=== PATIENT | male | born 1965 | race Caucasian/White ===

== ENCOUNTER 2020-10-09 14:18 | Inpatient (IN) | payer MEDICARE, MEDICAID, SELFPAY ==
--- NOTE | ~2020-10-09 | CT_ITS ---
EXAMINATION: CT brain wo con INDICATION: Increasing weakness, altered mental status COMPARISON: None TECHNIQUE: Standard unenhanced head CT. The dose-length product (DLP) was 681.00 mGy-cm. The mA was a djusted according to patient size. Iterative reconstruction technique was employed. FINDINGS: There is no acute intraparenchymal hemorrhage. No evidence of mass lesion. No evidence of a cute infarction. There are areas of hypoattenuation in the periventricular white matter adjacent to t he left lateral ventricles as well as in the right frontal lobe. There is mild periventricular and gutierrez bcortical hypodensity probably related to small vessel ischemic disease. There is mild prominence of the sulci and ventricles related to cerebral atrophy. Intracranial calcified cerebral atherosclerosis is noted. There are no extra-axial collections. There is no mass effect or midline shift. The orbits and soft tissues are unremarkable. The visualized sinuses and mastoid air cells are well aerated. IMPRESSION: 1. No acute intracranial abnormality. 2. Areas of low attenuation in the periventricular white matter and right frontal lobe which could re flect prior infarction or possibly demyelinating disorder such as multiple sclerosis. Reviewed, dictated and finalized at location B. IMPRESSION: 1. No acute intracranial abnormality. 2. Areas of low attenuation in the periventricular white matter and right front al lobe which could reflect prior infarction or possibly demyelinating disorder such as multiple sclerosis.
--- NOTE | ~2020-10-09 | XR_ITS ---
EXAMINATION: XR chest 1V portable INDICATION: Weakness and shortness of breath TECHNIQUE: Portable AP chest at 1605 hours COMPARISON: None available FINDINGS: There is a small left pleural effusion. Minimal airspace opacities are present in the lung bases, left greater than right. There is no pneumothorax. The cardiomediastinal silhouette is normal. IMPRESSION: 1. Bibasilar airspace opacities, consistent with atelectasis versus pneumonia. 2. Small left pleural effusion. Reviewed, dictated and finalized at location B.
[2020-10-09 14:40] VITALS: BP 124/78; PULSE 95; RESP 20; TEMP 38; O2SAT 99
--- NOTE | 2020-10-09 15:31 | ECG_ITS ---
Measurements Intervals [place] Rate: 100 P: 56 CA: 156 QRS: -8 QRSD: 84 T: 34 QT: 330 QTc: 427 Interpretive Statements SINUS TACHYCARDIA VENTRICULAR PREMATURE COMPLEXES DELAYED PRECORDIAL R/S TRANSITION NONSPECIFIC T-WAVE ABNORMALITY- DIFFUSE LEADS BASELINE ARTIFACT- I, II, III, AVR, AVL, AVF, V1, V6 BORDERLINE ECG Electronically Signed On 10-09-2020 16:00:51 CDT by Migue Gardner D.O.
[2020-10-09 16:06] LABS: Basophils Absolute Auto 0.04 K/mm3 (0.00-0.10); Basophils Percent Auto 0.2 % (0.0-1.0); Hematocrit 46.5 % (40.0-54.0); Hemoglobin 15.5 g/dL (14.0-18.0); Immature Granulocyte Absolute 0.06 K/mm3 (0.00-0.00); Immature Granulocyte Percent A 0.3 % (0.0-0.0); Lymphocytes Absolute Auto 0.85 K/mm3 (1.10-4.50); Lymphocytes Percent Auto 4.7 % (18.0-42.0); Mean Corpuscular HGB Conc 33.3 g/dL (32.0-36.0); Mean Corpuscular Hemoglobin 30.8 pg (27.0-31.0); Mean Corpuscular Volume 92.3 fL (78.0-102.0); Mean Platelet Volume 9.1 fl (8.7-11.0); Monocytes Absolute Auto 1.59 K/mm3 (0.10-0.90); Monocytes Percent Auto 8.8 % (2.0-11.0); Neutrophils Absolute Auto 15.5 K/mm3 (1.7-7.2); Platelet Count Result 228 K/mm3 (150-420); Red Blood Count 5.04 M/mm3 (4.70-6.10); Red Cell Distribution Width 12.2 % (11.6-14.4); White Blood Count 18.1 K/mm3 (4.8-10.8)
[2020-10-09] MEDS: SODIUM CHLORIDE 0.9% IV 1,000 ML 150 ML IV CONT (16:16)
[2020-10-09 16:25] LABS: Alanine Aminotransferase 51 U/L (16-63); Albumin Level 4.2 g/dL (3.4-5.0); Alkaline Phosphatase 79 U/L (46-116); Anion Gap 9 mmol/L (8-16); Aspartate Amino Transferase 20 U/L (15-37); Bilirubin,Total 1.1 mg/dL (0.00-1.00); Blood Urea Nitrogen 11 mg/dL (7-18); Calcium 9.1 mg/dL (8.5-10.1); Carbon Dioxide 28 mmol/L (21-32); Chloride 103 mmol/L (98-108); Estimated CRCL calculation 82 ml/min; Estimated Glomerular Filt Rate > 60; Glucose 106 mg/dL (70-99); Lactic Acid Reflex 1.3 mmol/L (0.4-2.0); Osmolality Calculated 289 mOsm/kg (285-295); Potassium 4.1 mmol/L (3.5-5.1); Sodium 140 mmol/L (136-145); Total Protein 7.6 g/dL (6.4-8.2); Troponin I 4.3 ng/L (0.00-60.4)
--- NOTE | 2020-10-09 17:28 | PC.NURSE ---
Call placed to pts. neurologist Dr Mensah, oncall is Dr Evans per neurology staff. Awaiting call back from Dr Evans.
[2020-10-09 17:57] LABS: Appearance Urine Clear (Clear); Bilirubin Urine Negative (Negative); Color Urine Light Yellow (Yellow); Glucose Urine UA Negative (Negative); Ketones Urine 1+ (Negative); Leukocyte Esterase Ur 1+ (Negative); Nitrate Urine Positive (Negative); Protein Urine Negative (Negative); Urobilinogen Urine 0.2 mg/dL (0.2-1.0); pH Urine 6.5 (5.0-8.0)
[2020-10-09 18:05] LABS: Add Urine Microscopic? YES; Amorphous Sediment Urine Few; Bacteria Urine 4+ /hpf; Blood Urine Trace-lysed (Negative); RBC Urine 0-2 /hpf (0-2); Squamous Epithelial Cell Urine None seen /hpf (Few)
--- NOTE | 2020-10-09 18:27 | ED.WEAKNESS ---
HPI - Weakness General Chief complaint: Weakness Stated complaint: Ambulance Time Seen by Provider: 10/09/20 14:42 Source: patient and RN notes reviewed Mode of arrival: wheelchair Limitations: no limitations History of Present Illness MD Complaint: generalized weakness and lack of energy Onset (ago): hour(s) (4) Duration: constant Location: generalized Severity: mild Severity scale (1-10): 7 Quality: dull Relieving factors: none Exacerbating factors: none Context: other (pt has MS, but has done well living on his own for many years.) Associated symptoms: loss of appetite Related Data Home Medications Medication Instructions Recorded Confirmed atorvastatin 20 mg PO DAILY 10/09/20 10/09/20 glatiramer [Glatopa] See Rx Instructions .ROUTE .COMPLEX 10/09/20 10/09/20 Allergies Allergy/AdvReac Type Severity Reaction Status Date / Time No Known Allergies Allergy Verified 10/09/20 15:29 Review of Systems Review of Systems: All systems reviewed & are unremarkable except as noted in HPI and below Constitutional: Constitutional: Reports as per HPI and Reports no additional constitutional complaints Eyes: Eyes: Reports as per HPI and Reports no additional eye complaints ENT: Reports system reviewed and no additional complaints, except as documented and Reports as per HPI Cardiovascular: Cardiovascular: Reports as per HPI and Reports no additional cardiovascular complaints Respiratory: Respiratory: Reports as per HPI and Reports no additional respiratory complaints Gastrointestinal: Gastrointestinal: Reports as per HPI and Reports no additional gastrointestinal complaints Genitourinary: Genitourinary: Reports no additional male genitourinary complaints and Reports as per HPI Musculoskeletal: Musculoskeletal: Reports no additional musculoskeletal complaints and Reports as per HPI Integumentary/Breasts: Skin/Breast: Reports system reviewed and no additional complaints, except as docu and Reports as per HPI Neurologic: Reports system reviewed and no additional complaints, except as documented and Reports as per HPI Psychiatric: Psychiatric: Reports no additional psychiatric complaints and Reports as per HPI Endocrine: Endocrine: Reports no additional endocrine complaints and Reports as per HPI Hematologic/Lymphatic: Hematologic/Lymphatic: Reports no additional hematologic/lymphatic complaints and Reports as per HPI Allergic/Immunologic: Allergic/Immunologic: Reports no additional allergic/immunologic complaints and Reports as per HPI PMFSH Past Medical History Medical History Multiple sclerosis exacerbation Social History Social History Smoking status: Former smoker Tobacco type: cigarettes Alcohol intake: never Substance use: never Gender identity (if verbalized by the patient): Male Spiritual care concerns: No Exam Const: General: no acute distress, alert and ill appearing Orientation/consciousness: patient oriented x3 HENMT: Head: normal to inspection Ears: external ears normal and TM's normal bilaterally General nose exam: Normal external nose present and Normal nares present Mouth: Yes lip normal and Yes moist mucous membranes Teeth and gingiva: dentition normal Eyes: Conjunctivae: conjunctivae normal Pupils: Equal, round and reactive pupils present EOM: EOMs intact bilaterally Neck: Neck: normal visual inspection and no lymphadenopathy Chest: Chest palpation & inspection: normal inspection of the chest Resp: Effort & Inspection: normal respiratory effort Auscultation: crackles and rhonchi Cardio: Rate: regular rate Rhythm: regular rhythm GI: GI Palp: Yes Soft to palpation Percussion: Yes normal to percussion Auscultation: normal bowel sounds : General: Yes CVA tenderness Male General Exam: Yes normal external exam Back/Spine/Pelvis: Back: no CVA tendernes
[2020-10-09] MEDS: AZITHROMYCIN 250 MG TABLET 500 MG PO (18:54)
[2020-10-09 19:00] VITALS: BP 112/68; PULSE 100; RESP 20; TEMP 37.5; O2SAT 97
[2020-10-09 19:06] VITALS: PULSE 91; RESP 18; O2SAT 95
[2020-10-09 20:00] VITALS: BP 127/72; PULSE 100; PULSE 91; RESP 18; TEMP 37.5; O2SAT 95
[2020-10-09 20:21] VITALS: BMI 25.6
[2020-10-09] MEDS: ENOXAPARIN 30 MG/0.3 ML SYRINGE SUB-Q (20:31)
[2020-10-09] MEDS: methylPREDNISolone SOD SUCC 125 MG VIAL IV PUSH ×2 (20:31→23:33)
[2020-10-09] MEDS: SODIUM CHLORIDE 0.9% IV 1,000 ML 100 ML IV CONT (20:49)
--- NOTE | 2020-10-09 21:10 | ADMGEN ---
This patient, Aditya Alves, was admitted to 2nd Floor Room 205-2. Patient oriented to hospital policies and general routines including ID bracelet, bed and alarms, visiting hours, pain management, procedures, bathroom and other care routines, personal items, smoking policy, room service/diet, and visiting hours. Information on how to activate the Rapid Response Team has been discussed. Patient are encouraged to report perceived risks to care and to ask questions if they do not understand what they are told or what they should do. Patient A/O x4. Denies any c/o pain at this time. Arrived to floor from ER at 1950. Patient has history of MS and has motorized wheelchair for mobility. Patient states has some feeling to BLE. IV present to left hand, 22g. Fluids running at this time, NS at 150/hr. Tremors noted to bilateral hands and arms. Slight edema present to bilateral ankles, non-pitting. Telemetry applied and NSR at 100. Diallo catheter present. Urine yellow and clear at this time.
[2020-10-10] VITALS (8 sets, daily range): BP systolic 105–132; BP diastolic 47–70; PULSE 90–113; RESP 14–20; TEMP 36.6–37.4; O2SAT 91–99
[2020-10-10] MEDS: SODIUM CHLORIDE 0.9% IV 1,000 ML 100 ML IV CONT ×2 (03:45→23:54)
[2020-10-10 05:40] LABS: Basophils Absolute Auto 0.01 K/mm3 (0.00-0.10); Basophils Percent Auto 0.1 % (0.0-1.0); Hematocrit 39.5 % (40.0-54.0); Hemoglobin 13.6 g/dL (14.0-18.0); Immature Granulocyte Absolute 0.11 K/mm3 (0.00-0.00); Immature Granulocyte Percent A 0.7 % (0.0-0.0); Lymphocytes Absolute Auto 0.82 K/mm3 (1.10-4.50); Lymphocytes Percent Auto 5.4 % (18.0-42.0); Mean Corpuscular HGB Conc 34.4 g/dL (32.0-36.0); Mean Corpuscular Hemoglobin 31.8 pg (27.0-31.0); Mean Corpuscular Volume 92.3 fL (78.0-102.0); Monocytes Absolute Auto 0.22 K/mm3 (0.10-0.90); Monocytes Percent Auto 1.5 % (2.0-11.0); Neutrophils Absolute Auto 13.9 K/mm3 (1.7-7.2); Neutrophils Percent Auto 92.3 % (50.0-70.0); Platelet Count Result 247 K/mm3 (150-420); Red Blood Count 4.28 M/mm3 (4.70-6.10); Red Cell Distribution Width 12.4 % (11.6-14.4); White Blood Count 15.1 K/mm3 (4.8-10.8)
[2020-10-10] MEDS: methylPREDNISolone SOD SUCC 125 MG VIAL IV PUSH (05:54)
[2020-10-10 06:03] LABS: Alanine Aminotransferase 39 U/L (16-63); Albumin Level 3.3 g/dL (3.4-5.0); Alkaline Phosphatase 62 U/L (46-116); Anion Gap 10 mmol/L (8-16); Aspartate Amino Transferase 18 U/L (15-37); Bilirubin,Total 0.8 mg/dL (0.00-1.00); Blood Urea Nitrogen 12 mg/dL (7-18); Calcium 8.7 mg/dL (8.5-10.1); Carbon Dioxide 24 mmol/L (21-32); Chloride 108 mmol/L (98-108); Estimated CRCL calculation 94 ml/min; Estimated Glomerular Filt Rate > 60; Glucose 169 mg/dL (70-99); Osmolality Calculated 297 mOsm/kg (285-295); Potassium 3.7 mmol/L (3.5-5.1); Sodium 142 mmol/L (136-145); Total Protein 6.5 g/dL (6.4-8.2)
--- NOTE | 2020-10-10 08:08 | PM.IMHP ---
H&P: HPI History of Present Illness Date/Time: 10/10/20 08:08 Aditya Alves is a 55 your old male who is admitted as an inpatient for Pneumonia, UTI, and possible MS exacerbation. Pt states that his MS waxes and wanes as usual. He started to feel chills and shaking yesterday with some SOB. He also felt some decreased energy and generalized weakness. This AM Pt states that he feels much better. He did receive Methylprednisolone 125mg Q6H since admitted until this AM. Pt states that he did not notice any big changes in his MS other than the usual wax and wane with exception for generalized weakness. Pt denies CP, Abdominal pain, Constipation, coughing up sputum (but does have active cough once in a while), urinary symptoms. Pt states he uses a motorized scooter, able to transfer, does not walk, has intention tremors, attempts to talk slowly so as to be understood better. Chief Complaint: Generalized weakness, decreased energy, SOB Review of Systems Constitutional: Constitutional: Reports no additional constitutional complaints, Denies body ache(s), Reports chills, Denies fever(s), Reports lethargy and Reports weakness Eyes: Eyes: Reports no additional eye complaints ENT: Reports system reviewed and no additional complaints, except as documented Cardiovascular: Cardiovascular: Reports no additional cardiovascular complaints, Denies chest pain and Denies chest pain at rest Respiratory: Respiratory: Reports no additional respiratory complaints, Reports cough and Reports dyspnea (which is resolved this AM) Gastrointestinal: Gastrointestinal: Reports no additional gastrointestinal complaints and Denies constipation (does not use Laxatives or special diet) Genitourinary: Genitourinary: Reports no additional male genitourinary complaints Musculoskeletal: Musculoskeletal: Reports no additional musculoskeletal complaints Comments: states he dose have the MS hug sensation Neurologic: Reports system reviewed and no additional complaints, except as documented, Reports Neuro-related abnormal movements, Reports Abnormal speech present (attempts to talk slower to compensate) and Denies dizziness Psychiatric: Psychiatric: Reports no additional psychiatric complaints PMFSH Past Medical History Medical History Multiple sclerosis exacerbation Social History Social History Smoking status: Former smoker Tobacco type: cigarettes Alcohol intake: never Substance use: never Gender identity (if verbalized by the patient): Male Spiritual care concerns: No Meds Home Medications and Allergies Home Medications Medication Instructions Recorded Confirmed Type atorvastatin 20 mg PO DAILY 10/09/20 10/09/20 History glatiramer [Glatopa] See Rx Instructions .ROUTE .COMPLEX 10/09/20 10/09/20 History Allergies Allergy/AdvReac Type Severity Reaction Status Date / Time No Known Allergies Allergy Verified 10/09/20 15:29 Vital Signs Vital Signs - 24 hr 10/09/20 14:40 10/09/20 19:00 10/09/20 19:06 Temperature 100.4 F H 99.5 F Pulse Rate 95 100 91 Respiratory Rate 20 20 18 Blood Pressure 124/78 112/68 Pulse Oximetry 99 97 95 10/09/20 20:00 10/10/20 00:00 10/10/20 04:00 Temperature 99.5 F 99.4 F 97.9 F Pulse Rate 91 106 H 93 Respiratory Rate 18 18 18 Blood Pressure 127/72 105/67 106/67 Pulse Oximetry 95 91 92 Exam Const: General: cooperative, comfortable, no acute distress, alert, awake and Physically active Nutritional Appearance: average body habitus Neck: Neck: normal visual inspection and no JVD Resp: Effort & Inspection: normal respiratory effort and Actively coughing (occasional, non-productive) Auscultation: clear to auscultation bilaterally Cardio: Rate: regular rate Rhythm: regular rhythm Heart sounds: S1 normal heart sound present and S2 normal heart sound present GI: GI Palp: Yes Soft to palp
--- NOTE | 2020-10-10 08:17 | PC.NURSE ---
Lab notified of urine culture to be done, confirmed they have urine from ER they will use for sample
[2020-10-10] MEDS: ENOXAPARIN 30 MG/0.3 ML SYRINGE SUB-Q ×2 (09:12→20:14)
[2020-10-10] MEDS: AZITHROMYCIN 250 MG TABLET 500 MG PO (09:13)
[2020-10-10] MEDS: ATORVASTATIN 10 MG TABLET 20 MG PO (09:13)
[2020-10-10] MEDS: ALBUTEROL SULFATE NEB 2.5 MG/3 ML INH INHALATION (17:38)
[2020-10-10] MEDS: methylPREDNISolone SOD SUCC 125 MG VIAL 60 MG IV PUSH ×2 (17:59→23:53)
--- NOTE | 2020-10-10 23:10 | PC.NURSE ---
Bedside report completed. Patient is awake, but states he is not in any pain and is comfortable in the bed. Made sure call light was within reach, and wanted items within reach on bedside table.
[2020-10-11] VITALS (11 sets, daily range): BP systolic 106–130; BP diastolic 47–77; PULSE 77–106; RESP 16–20; TEMP 36.6–37.3; O2SAT 90–98
[2020-10-11 05:17] LABS: Hematocrit 36.6 % (40.0-54.0); Hemoglobin 12.5 g/dL (14.0-18.0); Mean Corpuscular HGB Conc 34.2 g/dL (32.0-36.0); Mean Corpuscular Hemoglobin 31.6 pg (27.0-31.0); Mean Corpuscular Volume 92.7 fL (78.0-102.0); Mean Platelet Volume 9.9 fl (8.7-11.0); Platelet Count Result 250 K/mm3 (150-420); Red Blood Count 3.95 M/mm3 (4.70-6.10); Red Cell Distribution Width 12.6 % (11.6-14.4); White Blood Count 16.6 K/mm3 (4.8-10.8)
[2020-10-11 05:32] LABS: Anion Gap 12 mmol/L (8-16); Blood Urea Nitrogen 14 mg/dL (7-18); Calcium 8.2 mg/dL (8.5-10.1); Carbon Dioxide 24 mmol/L (21-32); Chloride 110 mmol/L (98-108); Estimated CRCL calculation 107 ml/min; Estimated Glomerular Filt Rate > 60; Glucose 174 mg/dL (70-99); Osmolality Calculated 306 mOsm/kg (285-295); Potassium 4.1 mmol/L (3.5-5.1); Sodium 146 mmol/L (136-145)
[2020-10-11] MEDS: ALBUTEROL SULFATE NEB 2.5 MG/3 ML INH INHALATION ×2 (05:36→17:48)
[2020-10-11] MEDS: methylPREDNISolone SOD SUCC 125 MG VIAL 60 MG IV PUSH ×4 (06:36→23:48)
--- NOTE | 2020-10-11 07:27 | PM.IMPN ---
Progress Note: A&P Assessment and Plan (1) Pneumonia: Qualifiers: Laterality: bilateral Lung location: unspecified part of lung Pneumonia type: due to unspecified organism Qualified Code(s): J18.9 - Pneumonia, unspecified organism <Tian CourtneyDEMETRIUS-C - Last Filed: 10/11/20 13:29> Code(s): J18.9 - Pneumonia, unspecified organism <Tian Garcia DEMETRIUS Courtney-C - Last Filed: 10/11/20 13:29> Status: Acute <Tian Courtney PORTAL ARCHITECT-C - Last Filed: 10/11/20 13:29> Assessment and Plan: Rocephin and Azithromycin, monitor VS Q8H, Supplemental O2 if/when needed, Acapella or similar, WBC 15.1, Blood Cx Pending, adding Albuterol for occasional cough/wheeze 10/11/2020 VSS, remains on room air, WBC 16.6, lungs clear, no cough, SpO2 >= 92% <Tian CloudKiya Courtney APN-C - Last Filed: 10/11/20 13:29> (2) Acute UTI: Code(s): N39.0 - Urinary tract infection, site not specified <Tian MelgarDEMETRIUS ny-C - Last Filed: 10/11/20 13:29> Status: Acute <Tian MelgarCARLOS nyN-C - Last Filed: 10/11/20 13:29> Assessment and Plan: 1 L IVF in ER, NS @ 100/h, Rocephin, urine Cx pending, + Nitrites, 4-6 WBC, 4+ Bacteria, 1+ LE 10/11/2020 continue with Rocephin, fluid balance +460 <Tian CloudKyia RamónCARLOS nyN-C - Last Filed: 10/11/20 13:29> (3) Multiple sclerosis: Code(s): G35 - Multiple sclerosis <Tian CloudKiya Courtney APN-C - Last Filed: 10/11/20 13:29> Status: Acute <Tian CloudKiya Courtney APN-C - Last Filed: 10/11/20 13:29> Assessment and Plan: Continue Glatopa (will need to bring in from home), Solu-Medrol 60mg Q6H, neuro evaluation, Pt states he has no issues with constipation, monitor for constipation, Lela EDSS 7.5 10/11/2020 No BM issues, speech improved since yesterday less scanning speech, less generalized ataxia, continue current steroid dose <Tian CloudTATIANNA Hill - Last Filed: 10/11/20 13:29> (4) Hyperlipidemia: Code(s): E78.5 - Hyperlipidemia, unspecified <Tian CloudTATIANNA Hill - Last Filed: 10/11/20 13:29> Status: Acute <Tian CloudTATIANNA Hill - Last Filed: 10/11/20 13:29> Assessment and Plan: Continue Atorvastatin <Tian AiTATIANNA Hill - Last Filed: 10/11/20 13:29> Subjective Date/time seen: 10/11/20 07:27 Pt is in good spirits this AM. He says he is doing good. He has no complaints or concerns. He denies any constipation, CP, respiratory issues. <Tian AiTATIANNA Hill - Last Filed: 10/11/20 13:29> Review of Systems Review of Systems: All systems reviewed & are unremarkable except as noted in HPI and below <TATIANNA Mathews - Last Filed: 10/11/20 13:29> Exam Const: General: cooperative, comfortable, no acute distress, alert, awake and Physically active <TATIANNA Mathews - Last Filed: 10/11/20 13:29> Nutritional Appearance: average body habitus <TATIANNA Mathews - Last Filed: 10/11/20 13:29> Resp: Effort & Inspection: normal respiratory effort <TATIANNA Mathews - Last Filed: 10/11/20 13:29> Auscultation: clear to auscultation bilaterally <TATIANNA Mathews - Last Filed: 10/11/20 13:29> Cardio: Jugular venous distension: no JVD <TATIANNA Mathews - Last Filed: 10/11/20 13:29> Rate: regular rate <TATIANNA Mathews - Last Filed: 07/22/21 13:29> Heart sounds: S1 normal heart sound present and S2 normal heart sound present <TATIANNA Mathews - Last Filed: 10/11/20 13:29> GI: GI Palp: Yes Soft to palpation and No Tenderness to palpation present (GI) <TATIANNA Mathews - Last Filed: 10/11/20 13:29> Auscultation: Hypoactive bowel sounds present <TATIANNA Mathews - Last Filed: 10/11/20 13:29> Urinary Catheter: Urinary Catheter: patent and draining and urine clear <TATIANNA Mathews - Last Filed: 10/11/20 13:29> Skin: General skin exam: normal color and dry skin <TATIANNA Mathews - Last Filed: 10/11/20 13:29> Neuro: General: orie
[2020-10-11] MEDS: ENOXAPARIN 30 MG/0.3 ML SYRINGE SUB-Q ×2 (09:35→20:25)
[2020-10-11] MEDS: ATORVASTATIN 10 MG TABLET 20 MG PO (09:35)
[2020-10-11] MEDS: AZITHROMYCIN 250 MG TABLET 500 MG PO (09:36)
[2020-10-11] MEDS: SODIUM CHLORIDE 0.9% IV 1,000 ML 100 ML IV CONT ×2 (10:39→20:25)
[2020-10-12] VITALS: BP 122/69; PULSE 78; PULSE 81; RESP 20; TEMP 36.6; O2SAT 94
--- NOTE | 2020-10-12 02:38 | PC.NURSE ---
Patient was awake, but lying quietly when rounded on. He indicated that he was comfortable, and not in need of anything at this time.
[2020-10-12 04:00] VITALS: BP 144/72; PULSE 76; PULSE 79; RESP 18; TEMP 36.8; O2SAT 93
[2020-10-12 05:17] LABS: Hematocrit 36.6 % (40.0-54.0); Hemoglobin 12.5 g/dL (14.0-18.0); Mean Corpuscular HGB Conc 34.2 g/dL (32.0-36.0); Mean Corpuscular Hemoglobin 31.5 pg (27.0-31.0); Mean Corpuscular Volume 92.2 fL (78.0-102.0); Mean Platelet Volume 9.5 fl (8.7-11.0); Platelet Count Result 252 K/mm3 (150-420); Red Blood Count 3.97 M/mm3 (4.70-6.10); Red Cell Distribution Width 12.8 % (11.6-14.4); White Blood Count 15.2 K/mm3 (4.8-10.8)
[2020-10-12 05:34] LABS: Anion Gap 11 mmol/L (8-16); Blood Urea Nitrogen 13 mg/dL (7-18); Carbon Dioxide 25 mmol/L (21-32); Chloride 110 mmol/L (98-108); Estimated CRCL calculation 107 ml/min; Estimated Glomerular Filt Rate > 60; Glucose 148 mg/dL (70-99); Osmolality Calculated 305 mOsm/kg (285-295); Potassium 3.6 mmol/L (3.5-5.1); Sodium 146 mmol/L (136-145)
[2020-10-12] MEDS: ALBUTEROL SULFATE NEB 2.5 MG/3 ML INH INHALATION (05:37)
[2020-10-12 05:38] VITALS: PULSE 77; RESP 16; O2SAT 93
[2020-10-12 05:46] VITALS: PULSE 78; RESP 16; O2SAT 96
[2020-10-12] MEDS: methylPREDNISolone SOD SUCC 125 MG VIAL 60 MG IV PUSH ×2 (06:00→11:13)
[2020-10-12] MEDS: SODIUM CHLORIDE 0.9% IV 1,000 ML 100 ML IV CONT (06:01)
[2020-10-12 08:00] VITALS: BP 102/66; PULSE 90; RESP 18; TEMP 36.4; O2SAT 92
[2020-10-12] MEDS: ENOXAPARIN 30 MG/0.3 ML SYRINGE SUB-Q (08:19)
[2020-10-12] MEDS: AZITHROMYCIN 250 MG TABLET 500 MG PO (08:19)
[2020-10-12] MEDS: ATORVASTATIN 10 MG TABLET 20 MG PO (08:19)
--- NOTE | 2020-10-12 11:15 | PC.NURSE ---
[facility] called to transport pt home due to pt unable to ambulate and does not have equipment needed to get into his home.
--- NOTE | 2020-10-12 11:33 | PM.DS ---
DS: Admitting Diagnosis Admitting Diagnosis Pneumonia, UTI <Tian CloudTATIANNA Hill - Last Filed: 10/12/20 11:43> DS: Discharge Diagnosis Discharge Diagnosis (1) Pneumonia: Qualifiers: Laterality: bilateral Lung location: unspecified part of lung Pneumonia type: due to unspecified organism Qualified Code(s): J18.9 - Pneumonia, unspecified organism <Tian CloudTATIANNA Hill - Last Filed: 10/12/20 11:43> Code(s): J18.9 - Pneumonia, unspecified organism <Tian CloudTONO HillC - Last Filed: 10/12/20 11:43> Status: Acute <Tian CloudTATIANNA Hill - Last Filed: 10/12/20 11:43> Assessment and Plan: Rocephin and Azithromycin, monitor VS Q8H, Supplemental O2 if/when needed, Acapella or similar, WBC 15.1, Blood Cx Pending, adding Albuterol for occasional cough/wheeze 10/11/2020 VSS, remains on room air, WBC 16.6, lungs clear, no cough, SpO2 >= 92% 10/12/2020 WBC v 15.2, occasional cough, SpO2 > 92%, Breathing improved, will send home with Azithromycin x 3 days <Tian CloudTATIANNA Hill - Last Filed: 10/12/20 11:43> (2) Acute UTI: Code(s): N39.0 - Urinary tract infection, site not specified <Tian CloudTATIANNA Hill - Last Filed: 10/12/20 11:43> Status: Acute <Tian CloudTATIANNA Hill - Last Filed: 10/12/20 11:43> Assessment and Plan: 1 L IVF in ER, NS @ 100/h, Rocephin, urine Cx pending, + Nitrites, 4-6 WBC, 4+ Bacteria, 1+ LE 10/11/2020 continue with Rocephin, fluid balance +460 10/12/2020 Urine Cx reported No Growth as final <Tian CloudTATIANNA Hill - Last Filed: 10/12/20 11:43> (3) Multiple sclerosis: Code(s): G35 - Multiple sclerosis <TATIANNA Mathews - Last Filed: 10/12/20 11:43> Status: Acute <Tian CloudTATIANNA Hill - Last Filed: 10/12/20 11:43> Assessment and Plan: Continue Glatopa (will need to bring in from home), Solu-Medrol 60mg Q6H, neuro evaluation, Pt states he has no issues with constipation, monitor for constipation, Lela EDSS 7.5 10/11/2020 No BM issues, speech improved since yesterday less scanning speech, less generalized ataxia, continue current steroid dose 10/12/2020 Will send home with Prednisone taper <TATIANNA Mathews - Last Filed: 10/12/20 11:43> (4) Hyperlipidemia: Code(s): E78.5 - Hyperlipidemia, unspecified <TATIANNA Mathews - Last Filed: 10/12/20 11:43> Status: Acute <TATIANNA Mathews - Last Filed: 10/12/20 11:43> Assessment and Plan: Continue Atorvastatin <Tian AiTATIANNA Hill - Last Filed: 10/12/20 11:43> DS: Summary Hospital Course Hospital Course: Pts MS symptoms improved, breathing improved, Urine Cx shows No Growth <TATIANNA Mathews - Last Filed: 10/12/20 11:43> Time Spent with Patient Time attestation: Total time spent providing and/or coordinating discharge services: < 30 minutes <TATIANNA Mathews - Last Filed: 10/12/20 11:43> Exam Const: General: cooperative, comfortable, no acute distress, alert, awake and Physically active <TATIANNA Mathews - Last Filed: 10/12/20 11:43> Nutritional Appearance: average body habitus <TATIANNA Mathews - Last Filed: 10/12/20 11:43> Resp: Effort & Inspection: normal respiratory effort <TATIANNA Mathews - Last Filed: 10/12/20 11:43> Auscultation: clear to auscultation bilaterally and rhonchi (posterior bases) <TATIANNA Mathews - Last Filed: 10/12/20 11:43> Cardio: Rate: regular rate <TATIANNA Mathews - Last Filed: 10/12/20 11:43> Rhythm: regular rhythm <TATIANNA Mathews - Last Filed: 10/12/20 11:43> Heart sounds: S1 normal heart sound present and S2 normal heart sound present <TATIANNA Mathews - Last Filed: 10/12/20 11:43> GI: GI Palp: Yes Soft to palpation and No Tenderness to palpation present (GI) <TATIANNA Mathews - Last Filed: 10/12/20 11:43> Auscultation: normal bowel sounds <TATIANNA Mathews
--- NOTE | 2020-10-12 12:05 | PC.NURSE ---
pt discharged in stable condition to EMS stretcher, discharge instructions given and verbalized understanding, iv removed with catheter intact prior to EMS arrival.
--- NOTE | 2020-10-15 10:39 | PC.NURSE ---
Pt states he received and understood his discharge instructions. Pt also states his care was great .
== END 2020-10-12 12:05 | disposition home or self-care (01) | DRG 194 ==
LOC: CHSED 18:59 → CHS2ND 19:19
PROVIDERS: Nurse Practitioner Family; Admitting Provider Emergency Medicine; Emergency Provider Emergency Medicine; PCP Family Medicine; Visit Provider Emergency Medicine
DX: J18.9 Pneumonia, unspecified organism (principal); N39.0 Urinary tract infection, site not specified; G35 Multiple sclerosis; Z87.891 Personal history of nicotine dependence; E78.5 Hyperlipidemia, unspecified
CPT/HCPCS: 36415; 70450; 71045; 80048; 80053; 81001; 83605; 84484; 85025; 85027; 87040; 87086; 93005; 94640; 94667; 96361; 96365; 99284; 99285; A9270; J0696; J1650; J2930; J7030